=== PATIENT | female | born 1935 | race Caucasian/White ===

== ENCOUNTER 2021-03-12 06:18 | Inpatient (IN) ==
[2021-03-12] MEDS ORDERED: LACTATED RINGERS 1,000 ML IV ONE (06:45)
[2021-03-12] MEDS ORDERED: ONDANSETRON 4 MG/2 ML VIAL IV ONE (06:45)
[2021-03-12] MEDS ORDERED: 0.9 % SODIUM CHLORIDE 1,000 ML BAG IV SCH (07:00)
--- NOTE | 2021-03-12 07:04 | Emergency Department Note ---
Weakness HPI General Chief complaint: Weakness Stated complaint: weakness Time Seen by Provider: 03/12/21 06:40 Source: patient Mode of arrival: EMS Limitations: no limitations History of Present Illness HPI Narrative: Narrative: Patient is an 85-year-old female who presents by EMS this morning complaining of feeling weak when she got up. She has no speech difficulty no focused area of weakness and was ambulatory but describes sensation of feeling perhaps nauseated. She did not have any vomiting. No fever cough or shortness of breath. She does not feel any heart palpitations but when queried states perhaps a deeper heartbeat. No leg swelling. No recurrent rectal bleeding. Patient was seen 10 days ago with rectal bleed which was with noted extravasation on CT scan which resulted in her being transported to [place] where she underwent interventional procedure with coiling of a gastrointestinal vessel. Patient has follow-up tomorrow but noted with her symptoms today did not feel she should wait. She had previously been given hydrocodone but states that she has not taken any of that in the past day. Related Data Home Medications Medication Instructions Recorded Confirmed cholecalciferol (vitamin D3) 125 5,000 unit PO .COMPLEX cap 04/14/15 03/10/21 mcg (5,000 unit) capsule Previous Rx's Medication Instructions Recorded lisinopril 10 See Rx Instructions .ROUTE 06/14/20 mg-hydrochlorothiazide 12.5 mg .COMPLEX #30 tab tablet hydrocodone 5 mg-acetaminophen 325 1 tab PO BID PRN #20 tab 11/29/20 mg tablet levothyroxine 50 mcg tablet See Rx Instructions .ROUTE 03/07/21 .COMPLEX #90 tab Allergies Allergy/AdvReac Type Severity Reaction Status Date / Time monosodium glutamate Allergy Intermediate Unknown Verified 03/10/21 09:54 NSAIDS (Non-Steroidal Allergy Intermediate respiratory Verified 03/10/21 09:54 Anti-Inflamma problems, e.g. wheezing YULIYA Inhibitors Allergy Unknown Cough Verified 03/10/21 09:54 Verapamil Allergy Unknown Other Verified 03/10/21 09:54 Inderal Allergy Unknown Other Uncoded 03/10/21 09:54 Pollens (trees, grasses, Allergy Unknown Unknown Uncoded 03/10/21 09:54 ruiz) Sulfites/Food preservatives Allergy Unknown Unknown Uncoded 03/10/21 09:54 Yeast Allergy Unknown Uncoded 03/10/21 09:54 Review of Systems ROS ROS Narrative: Narrative: A 10 system review of systems was performed and found to be negative except as outlined above. [facility] Narrative Patient History Narrative: Narrative: Medical/Surgical/Family History All Active Problems (Updated 03/02/21 @ 05:09 by Franco Cook MD) Acute lower gastrointestinal bleeding (Acute) Diverticulosis (Acute) Acute urinary tract infection (Acute) Impacted ear wax (Acute) Decreased hearing of both ears (Acute) Fall (Chronic ~07/2015) Open head wound (Chronic ~07/2015) Right ankle injury (Chronic ~2014) S/p bilateral blepharoplasty (Chronic ~06/2014) Physical exam (Chronic) Arthritis (Chronic) Poor sleep (Chronic) Indigestion (Chronic) Well adult exam (Chronic) Encounter for screening for malignant neoplasm of vagina (Chronic) Encounter for screening for malignant neoplasm of colon (Chronic) Leg cramps (Chronic) Chronic renal disease, stage III (Chronic) Lumbar back pain with radiculopathy affecting left lower extremity (Chronic) Cervical radiculopathy (Chronic) Memory loss (Chronic) Muscle spasm (Chronic) Osteopenia (Chronic) Fatigue (Chronic) Insomnia (Chronic) Hemangioma of other sites (Chronic) Anxiety and depression (Chronic) Choking (Chronic) GERD (gastroesophageal reflux disease) (Chronic) Edema (Chronic) Dermatitis (Chronic) Hypertension (Chronic) Chronic renal disease (Chronic) UTI (urinary tract infection) (Chronic) Scoliosis (Chronic) Ankle pain, right (Chronic) Encounter for long-term (current) use of high-risk medication (Chronic) Knee pain, right (Chronic) Mood swings (Chronic) Hypothyroidism (Chronic) Skin mole (Chronic) Encounter for long-term current use of medication (Chronic) Urgency of urination (Chronic) Migraine headache (Chronic) Hyperlipemia (Chronic) Fluid retention (Chronic) History of tonsillectomy (Chronic) History of salpingoophorectomy (Chronic) History of hysterectomy (Chronic) History of augmentation of both breasts (Chronic) History of appendectomy (Chronic) History of adenoidectomy (Chronic) Vitamin D deficiency (Chronic) Venous insufficiency (Chronic) 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) Urinary incontinence, urge (Chronic) Urinary incontinence (Chronic) RLS (restless legs syndrome) (Chronic) Overweight (Chronic) Osteoarthrosis (Chronic) Low back pain (Chronic) IBS (irritable bowel syndrome) (Chronic) Hypertensive CKD (chronic kidney disease) (Chronic) Herpes zoster (Chronic) Hx of hemorrhoids (Chronic) affected by ectopic (Chronic) Degenerative joint disease (Chronic) History of colonic polyps (Chronic) Chronic kidney disease (CKD), 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) Back pain (Chronic) Anxiety disorder (Chronic) Allergic rhinitis (Chronic) Medical History (Updated 03/02/21 @ 05:09 by Franco Cook MD) Allergic rhinitis With postnasal drip Ankle pain, right Anxiety and depression Anxiety disorder Arthritis Back pain Chronic low back pain Borderline type 2 diabetes mellitus Cervical radiculopathy Choking Chronic kidney disease (CKD), stage II (mild) 07/17/2012 Chronic renal disease Chronic renal disease, stage III Degenerative joint disease Dermatitis Edema Encounter for long-term (current) use of high-risk medication Encounter for long-term current use of medication Encounter for screening for malignant neoplasm of colon Encounter for screening for malignant neoplasm of vagina Fall (~07/2015) fell for third time in four months 07/2015 Fatigue Fluid retention GERD (gastroesophageal reflux disease) Hemangioma of other sites Herpes zoster In LT T9 dermatome History of colonic polyps Hx of hemorrhoids Hyperlipemia Hypertension Hypertensive CKD (chronic kidney disease) Hypothyroidism IBS (irritable bowel syndrome) Indigestion Insomnia Knee pain, right Leg cramps Low back pain Lumbar back pain with radiculopathy affecting left lower extremity Memory loss Migraine headache Mood swings Muscle spasm [place] affected by ectopic Open head wound (~07/2015) requiring stitches on scalp from fall Osteoarthrosis Osteopenia Overweight Physical exam Poor sleep Right ankle injury (~2014) unstable ankle of concern RLS (restless legs syndrome) Scoliosis Skin mole Urgency of urination Urinary incontinence Urinary incontinence, urge UTI (urinary tract infection) Varicose veins of lower extremities with ulcer Venous insufficiency Vitamin D deficiency Well adult exam Surgical History History of adenoidectomy 1950 History of appendectomy 1957 History of augmentation of both breasts History of hysterectomy 1976 History of salpingoophorectomy 1976 History of tonsillectomy 1950 S/p bilateral blepharoplasty (~06/2014) eye lid drooping , interfering with vision Family History Sister Migraine with aura And daughters Mother Malignant neoplasm of colon Diabetes Arthritis HTN (hypertension) Father Cerebrovascular accident Heart disease Grandfather Lung cancer paternal Alcoholism Maternal Grandmother Diabetes Paternal Pancreatic cancer Maternal Social History Smoking Status: Never smoker Alcohol Intake Frequency: does not drink Substance Use: does not use Exam Narrative Narrative: Narrative: General: Alert, Nontoxic, speaking full sentences without dyspnea HEENT: NCAT, PERRL, Oral pharynx with moist mucus membranes. No pharyngeal erythema. No conjunctival pallor Neck: Supple, No lymphadenopathy Chest: Stable Heart: Overall regular rhythm with occasional ectopy. Monitor shows occasional PACs and PVCs. Lungs: Clear to auscultation bilaterally Abdomen: Soft, nondistended, nontender : No bladder distention Back: Nontraumatic, No CVA tenderness to palpation. Skin: No rash or lesion Extremity: No cyanosis or edema, pulses 2+ radial Neurologic: Moves all extremities in appropriate coordinated fashion. Cranial nerves III through XII symmetric intact. Strength is 5 out of 5 in all 4 extremities with sensation intact throughout. General Limitations: no limitations Course Vital Signs Vital signs: Vital Signs Temperature 98.2 F 03/12/21 06:21 Pulse Rate 82 03/12/21 06:21 Respiratory Rate 16 03/12/21 06:21 Blood Pressure 127/71 03/12/21 06:21 Pulse Oximetry (%) 95 03/12/21 06:21 Temperature 98.2 F 03/12/21 06:21 Pulse Rate 82 03/12/21 06:21 Respiratory Rate 16 03/12/21 06:21 Blood Pressure 127/71 03/12/21 06:21 Pulse Oximetry (%) 95 03/12/21 06:21 [facility] Narrative Medical decision making narrative: Narrative: Patient is with benign exam and nondescript weakness which overall seems to be a complaint of nausea. With the recent hydrocodone this is certainly a consideration but patient denies taking any of this in the past day. She is with noted occasional rhythm irregularity which seems to be PVCs and PACs. Will obtain ECG to further delineate rhythm. We will recheck hematocrit and electrolytes and give patient IV fluids and antiemetics and reassess. She does not have any focal neurologic deficit with no indication of cerebrovascular event. She does not describe any chest pain to imply any acute cardiovascular event. On exam patient was without pallor and blood pressures are normal. Care transferred to Dr. Bill at change of shift for reevaluation and review of labs. Discharge Plan Patient/Caregiver Discharge Instructions Pt seen by CALIBRATION TECHNICIAN/PA only: No Patient Disposition: Still a Patient Follow up with: Twan Farmer MD [Primary Care Provider] - Prescriptions: No Action lisinopril-hydrochlorothiazide 10-12.5 mg tablet See Rx Instructions .ROUTE .COMPLEX Qty: 30 RF: 5 levothyroxine 50 mcg tablet See Rx Instructions .ROUTE .COMPLEX Qty: 90 RF: 1 cholecalciferol (vitamin D3) 5,000 unit capsule 5,000 unit PO .COMPLEX RF: 0 hydrocodone-acetaminophen 5-325 mg tablet 1 tab PO BID PRN (Reason: pain) Qty: 20 RF: 0
[2021-03-12 07:11] LABS: POC Blood Urea Nitrogen 15 mg/dL (6-20); POC CO2 24 mmol/L (22-30); POC Calcium, Ionized 1.18 mmEq/L (1.16-1.32); POC Chloride 98 mEq/L (96-108); POC Creatinine 0.8 mg/dL (0.6-1.2); POC Glucose, Random 122 mg/dL (70-105); POC Hematocrit 32 % (36-48); POC Potassium 2.8 mEql/L (3.3-5.1); POC Sodium 139 mEq/L (133-145)
[2021-03-12] MEDS ORDERED: MAGNESIUM OXIDE 400 MG TABLET PO ONE (07:13)
[2021-03-12] MEDS ORDERED: POTASSIUM CHLORIDE 40 MEQ in DEXTROSE 5% IN WATER 500 ML IV ONE ×2 (07:13→07:56)
[2021-03-12] MEDS ORDERED: POTASSIUM CHLORIDE 20 MEQ/10 ML VIAL IV ONE (07:18)
--- NOTE | 2021-03-12 07:29 | Emergency Department Note ---
Course Reevaluation(s) Reevaluation #1: Patient's daughter arrived at bedside and noted the patient seems somewhat confused. She pointed out that she was having difficulty using her cell phone earlier today. I discussed this with the patient and she provides very vague seemingly confabulated history as to why she presented to the emergency department. I performed the following neurologic exam: Neuro -patient answers questions appropriately and is oriented to person place and situation. She is disoriented to the year but is able to correctly name the current president and the past 2 presidents. She provides somewhat vague answers to questions and seems slightly confused in conversation at times there is no dysarthria or aphasia. There is no facial muscular asymmetry. Extraocular motion is intact. Tongue protrudes in the midline. Palate elevates symmetrically. Shoulder shrug is symmetric. Muscle strength is 5 out of 5 in all 4 extremities. Peripheral sensation is grossly intact to light touch bilaterally. There is no [id number] abnormality. There is no [id number] abnormality. Patient's gait is intact. Given the patient's subtle confusion we will obtain additional blood work and imaging to evaluate for possible causes of metabolic encephalopathy. Symptoms do not seem consistent with ischemic stroke and as her NIH stroke scale is very low she would not benefit from IV thrombolytics or endovascular therapy I reviewed the test results with the patient and her daughter. She has normal renal function minimal anemia and no significant leukocytosis. Head CT does not reveal any intracranial hemorrhage. She does have significant pyuria. I considered the possibility of meningitis or encephalitis but the patient has no headache fever or leukocytosis to suggest this. Other than the addition of the new antihypertensive the patient does not have a recent medication adjustments that would explain her symptoms. I think most likely she is experiencing encephalopathy due to a UTI. The patient lives alone and daughter has noted continued confusion off and on throughout her emergency department stay. Given this I do not think would be safe to discharge the patient home. Her daughter agrees. The patient is reluctantly agreeable to admission for further treatment and evaluation. I discussed the patient's history examination and diagnostic findings with Dr. Hammer, who agrees with the plan of care and accepts admission. Time: 08:46 Vital Signs Vital signs: Vital Signs Temperature 98.2 F 03/12/21 06:21 Pulse Rate 82 03/12/21 06:21 Respiratory Rate 16 03/12/21 06:21 Blood Pressure 127/71 03/12/21 06:21 Pulse Oximetry (%) 95 03/12/21 06:21 Temperature 98.2 F 03/12/21 06:21 Pulse Rate 69 03/12/21 13:31 Respiratory Rate 14 03/12/21 13:31 Blood Pressure 155/82 03/12/21 13:31 Pulse Oximetry (%) 98 03/12/21 13:31 MDM MDM Narrative Medical decision making narrative: I assumed care from Dr. Guadarrama at the change of shift. I evaluated the patient in person at 7:20 AM. She is complaining of generalized weakness. She denies any diarrhea or vomiting. Labs remarkable for significant hypokalemia. I think is likely the cause of the patient's weakness. We will replete her potassium and administer supplemental magnesium to facilitate absorption. We will reassess her symptoms and potassium level afterwards and likely discharge. Patient is agreeable with plan Lab Data Result diagrams: 03/12/21 06:50 03/12/21 06:50 Labs: Lab Results 03/12/21 03/12/21 03/12/21 Range/Units 06:50 06:50 06:50 WBC 6.4 (4.5-11.0) K/mcL RBC 3.19 L (4.00-5.20) M/mcL Hgb 10.2 L (12.0-15.0) g/dL Hct 30.9 L (36.0-48.0) % POC Hct 32 L (36-48) % MCV 96.9 (80.0-100.0) fL MCH 32.0 (26.0-34.0) pg MCHC 33.0 (31.0-36.0) g/dL RDW 15.9 H (11.5-14.5) % Plt Count 344 (140-440) K/mcL MPV 10.4 (7.4-10.4) fL Neut % (Auto) 67.0 (38.0-78.0) % Lymph % (Auto) 22.2 (15.0-49.0) % [place] % (Auto) 9.6 (1.0-12.0) % Eos % (Auto) 0.6 (0.0-7.0) % Baso % (Auto) 0.6 (0.0-2.0) % Lymph # (Auto) 1.43 L (1.50-4.80) K/mcL [place] # (Auto) 0.62 (0.10-0.90) K/mcL Eos # (Auto) 0.04 (0.00-0.70) K/mcL Baso # (Auto) 0.04 (0.00-0.20) K/mcL Absolute Neutrophils 4.31 (1.80-8.00) K/mcL POC Sodium 139 (133-145) mEq/L Sodium 136 (133-145) mmol/L POC Potassium 2.8 L* (3.3-5.1) mEql/L Potassium 2.9 L* (3.3-5.1) mmol/L POC Chloride 98 (96-108) mEq/L Chloride 98 (96-108) mmol/L Carbon Dioxide 27 (22-30) mmol/L POC Total CO2 24 (22-30) mmol/L Anion Gap 11.0 (8.0-16.0) POC BUN 15 (6-20) mg/dL BUN 15 (8-23) mg/dL Creatinine 0.8 (0.6-1.1) mg/dL POC Creatinine 0.8 (0.6-1.2) mg/dL GFR Calculation 68 Glucose 117 H (70-105) mg/dL POC Glucose 122 H (70-105) mg/dL Calcium 9.2 (8.6-10.4) mg/dL POC WB Ioniz Calcium 1.18 (1.16-1.32) mmEq/L Total Bilirubin 0.4 (0.1-1.0) mg/dL AST 19 (<32) U/L ALT 7 (<40) U/L Alkaline Phosphatase 73 (39-117) U/L Total Protein 6.5 (5.9-8.4) gm/dL Albumin 4.1 (3.2-5.2) gm/dL Globulin 2.4 (2.2-3.7) gm/dL Albumin/Globulin Ratio 1.7 (1.0-2.3) Urine Color Urine Appearance (Clear) Urine pH (5.0-9.0) Ur Specific [place] (1.000-1.035) Urine Protein (Negative) mg/dL Urine Glucose (UA) (Negative) mg/dL Urine Ketones (Negative) mg/dL Urine Occult Blood (Negative) [place]/mcL Urine Nitrate (Negative) Urine Bilirubin (Negative) mg/dL Urine Urobilinogen mg/dL Ur Leukocyte Esterase (Negative) /ug Urine RBC (0-3) /hpf Urine WBC (0-4) /hpf Ur Squamous Epith Cells (0-4) /hpf Ur Transition Epith Cell (0-2) /hpf Urine Bacteria (0) /hpf Urine Mucus (None) /hpf Ur Culture Indicated? 03/12/21 Range/Units 07:50 WBC (4.5-11.0) K/mcL RBC (4.00-5.20) M/mcL Hgb (12.0-15.0) g/dL Hct (36.0-48.0) % POC Hct (36-48) % MCV (80.0-100.0) fL MCH (26.0-34.0) pg MCHC (31.0-36.0) g/dL RDW (11.5-14.5) % Plt Count (140-440) K/mcL MPV (7.4-10.4) fL Neut % (Auto) (38.0-78.0) % Lymph % (Auto) (15.0-49.0) % [place] % (Auto) (1.0-12.0) % Eos % (Auto) (0.0-7.0) % Baso % (Auto) (0.0-2.0) % Lymph # (Auto) (1.50-4.80) K/mcL [place] # (Auto) (0.10-0.90) K/mcL Eos # (Auto) (0.00-0.70) K/mcL Baso # (Auto) (0.00-0.20) K/mcL Absolute Neutrophils (1.80-8.00) K/mcL POC Sodium (133-145) mEq/L Sodium (133-145) mmol/L POC Potassium (3.3-5.1) mEql/L Potassium (3.3-5.1) mmol/L POC Chloride (96-108) mEq/L Chloride (96-108) mmol/L Carbon Dioxide (22-30) mmol/L POC Total CO2 (22-30) mmol/L Anion Gap (8.0-16.0) POC BUN (6-20) mg/dL BUN (8-23) mg/dL Creatinine (0.6-1.1) mg/dL POC Creatinine (0.6-1.2) mg/dL GFR Calculation Glucose (70-105) mg/dL POC Glucose (70-105) mg/dL Calcium (8.6-10.4) mg/dL POC WB Ioniz Calcium (1.16-1.32) mmEq/L Total Bilirubin (0.1-1.0) mg/dL AST (<32) U/L ALT (<40) U/L Alkaline Phosphatase (39-117) U/L Total Protein (5.9-8.4) gm/dL Albumin (3.2-5.2) gm/dL Globulin (2.2-3.7) gm/dL Albumin/Globulin Ratio (1.0-2.3) Urine Color Light yellow Urine Appearance Slightly cloudy A (Clear) Urine pH 7.0 (5.0-9.0) Ur Specific [place] 1.020 (1.000-1.035) Urine Protein Negative (Negative) mg/dL Urine Glucose (UA) Negative (Negative) mg/dL Urine Ketones Negative (Negative) mg/dL Urine Occult Blood Trace-intact A (Negative) [place]/mcL Urine Nitrate Negative (Negative) Urine Bilirubin Negative (Negative) mg/dL Urine Urobilinogen Normal mg/dL Ur Leukocyte Esterase Small A (Negative) /ug Urine RBC 3 (0-3) /hpf Urine WBC 84 H (0-4) /hpf Ur Squamous Epith Cells 3 (0-4) /hpf Ur Transition Epith Cell 3 H (0-2) /hpf Urine Bacteria Few A (0) /hpf Urine Mucus Few A (None) /hpf Ur Culture Indicated? yes EKG Data EKG #1: EKG attestation: Yes I reviewed and interpreted this EKG. EKG results narrative: EKG performed at 7:04 AM: Sinus rhythm, rate 72. There are few PACs. Normal P wave morphology. Left axis deviation. No ST segment deviation. Normal T wave morphology. Normal QRS and QTc duration. No old EKG immediately available for comparison. EKG interpreted by me. Discharge Plan Patient/Caregiver Discharge Instructions Pt seen by HEAD BUTLER/PA only: No Clinical Impression: Encephalopathy acute, Acute UTI Patient Disposition: Xfer As Inpt ([facility]) Condition: Fair Follow up with: Twan Farmer MD [Primary Care Provider] - Prescriptions: No Action lisinopril-hydrochlorothiazide 10-12.5 mg tablet See Rx Instructions .ROUTE .COMPLEX Qty: 30 RF: 5 levothyroxine 50 mcg tablet See Rx Instructions .ROUTE .COMPLEX Qty: 90 RF: 1 cholecalciferol (vitamin D3) 5,000 unit capsule 5,000 unit PO .COMPLEX RF: 0 hydrocodone-acetaminophen 5-325 mg tablet 1 tab PO BID PRN (Reason: pain) Qty: 20 RF: 0
[2021-03-12] MEDS: POTASSIUM CHLORIDE 20 MEQ TABLET PO ONE ×2 (07:40→07:45)
[2021-03-12] MEDS ORDERED: POTASSIUM CHLORIDE 20 MEQ TABLET PO ONE (07:44)
[2021-03-12] MEDS: POTASSIUM CHLORIDE 40 MEQ in DEXTROSE 5% IN WATER 500 ML IV ONE ×2 (07:45→07:59)
[2021-03-12 09:07] LABS: Basophils # (Auto) 0.04 K/mcL (0.00-0.20); Basophils % (Auto) 0.6 % (0.0-2.0); Eosinophils # (Auto) 0.04 K/mcL (0.00-0.70); Eosinophils % (Auto) 0.6 % (0.0-7.0); Hematocrit 30.9 % (36.0-48.0); Hemoglobin 10.2 g/dL (12.0-15.0); Lymphocytes # (Auto) 1.43 K/mcL (1.50-4.80); Lymphocytes % (Auto) 22.2 % (15.0-49.0); Mean Cell Volume 96.9 fL (80.0-100.0); Mean Platelet Volume 10.4 fL (7.4-10.4); Monocytes # (Auto) 0.62 K/mcL (0.10-0.90); Monocytes % (Auto) 9.6 % (1.0-12.0); Platelet Count 344 K/mcL (140-440); RBC 3.19 M/mcL (4.00-5.20); Red Cell Distribution Width 15.9 % (11.5-14.5); WBC 6.4 K/mcL (4.5-11.0)
[2021-03-12 09:13] LABS: ALT/SGPT 7 U/L (<40); AST/SGOT 19 U/L (<32); Albumin 4.1 gm/dL (3.2-5.2); Albumin/Globulin Ratio 1.7 (1.0-2.3); Alkaline Phosphatase 73 U/L (39-117); Bilirubin,Total 0.4 mg/dL (0.1-1.0); Blood Urea Nitrogen 15 mg/dL (8-23); Calcium 9.2 mg/dL (8.6-10.4); Carbon Dioxide 27 mmol/L (22-30); Chloride 98 mmol/L (96-108); Globulin 2.4 gm/dL (2.2-3.7); Glomerular Filtration Rate 68; Glucose 117 mg/dL (70-105)
--- NOTE | 2021-03-12 09:30 | XRay Report ---
HISTORY: Altered mental status with increased weakness FINDINGS: The lungs are clear and well expanded. The patient is leaning to the right. The heart size is within normal limits. There is no congestive heart failure pleural effusion. There are calcified plaques along the wall of the aorta. Spine has a kyphotic curvature. There is osteoporosis and mild arthritis. Bilateral breast implants are present. There are calcifications along the capsules of both implants. There has been prior fusion using pedicle screws and rods in the lumbar spine. IMPRESSION: No acute abnormality Interpreted and Authenticated by: Bao Castro 03/12/21
--- NOTE | 2021-03-12 09:41 | Cat Scan Report ---
History: Increased weakness with altered mental status TECHNIQUE: The brain was imaged without contrast in axial plane at 2.5 mm intervals. Sagittal and coronal reformats were created. The radiation exposure was limited using dose reduction technology. FINDINGS: There is mild generalized cerebral atrophy, most apparent around the sylvian fissures. There is moderate to severe diffuse white matter disease with confluent areas of abnormal decreased attenuation in the pearson radiata and centrum semiovale, predominantly involving the frontal and parietal lobes. There is a small old infarct in the right frontal lobe, anterior to the frontal horn of the right lateral ventricle, seen on axial image #23. It measures 8 mm. No acute infarct is detected. There is no hemorrhage or mass effect. Ventricles are prominent but proportionate to the atrophy. There is no abnormal extra-axial fluid collection. There are calcified plaques in the cavernous portions of both internal carotids and small amount of plaque in the left vertebral artery at the foramen magnum. There is opacification of a couple ethmoid air cells on the right side and mucosal thickening along the bajwa of a few left-sided ethmoid air cells due to mild sinusitis. 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 Mild ethmoid sinusitis Dr. Bill was called with the report Interpreted and Authenticated by: Bao Castro 03/12/21
[2021-03-12 10:46] LABS: Appearance,Urine Slightly Cloudy (Clear); Bacteria,Urine FEW /hpf (0); Bilirubin,Urine Negative (Negative); Color,Urine Light yellow; Culture Indicated,Urine yes; Glucose,Urine (UA) Negative (Negative); Ketones,Urine Negative (Negative); Leukocyte Esterase,Urine Small /ug (Negative); Mucus,Urine FEW /hpf; Nitrate,Urine Negative (Negative); Protein,Urine Negative (Negative); Urine Blood Trace-intact ery/mcL (Negative); Urine RBC 3 /hpf (0-3); Urine Squamous Epithelial Cell 3 /hpf (0-4); Urine Transitional Epi Cells 3 /hpf (0-2); Urine WBC 84 /hpf (0-4); Urobilinogen,Urine Normal
[2021-03-12] MEDS ORDERED: cefTRIAXone 1 GM VIAL IV ONE (11:18)
--- NOTE | 2021-03-12 15:31 | Internal Med History&Physical ---
HPI History of Present Illness Patient information: Note initiated : 03/12/21 at 3:20 pm Service Date, if different from initiated Date: [] Patient: Danuta Anderson 85 y/o F admitted on for weakness. Chief Complaint: [] History of present illness: Ms. 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 In the ED, the patient was found to have hypokalemia, acute cystitis and mild confusion. Review of systems Constitutional: no fever, fatigue, or weight loss Eyes: no vision changes or pain Cardiovascular: no chest pain, no palpitations Respiratory: no cough or dyspnea Gastrointestinal: no abdominal pain, no nausea, vomiting, or diarrhea Genitourinary: positive for dysuria Musculoskeletal: no arthralgia or myalgia Integumentary: no skin lesion or wound Neurological: positive for memory deficits. positive for visual hallucinations, no focal weakness or numbness Psychiatric: no anxiety or depression Physical exam Head: Atraumatic, normal inspection. Eyes: normal appearance, no scleral icterus. Neck: full ROM Respiratory: no respiratory distress. Cardiovascular: normal rate and rhythm, S1, S2. GI/Abdominal: soft, nontender, no guarding. Extremities: full range of motion, nontender. Neurological: CN II-XII intact, intact motor, intact sensation. Psychiatric: normal mood. Skin: warm, normal color PFSH PFSH All Active Problems (Updated 03/12/21 @ 14:09 by Vincenzo Bill DO) Encephalopathy acute (Acute) Acute UTI (Acute) Acute lower gastrointestinal bleeding (Acute) Diverticulosis (Acute) Acute urinary tract infection (Acute) Impacted ear wax (Acute) Decreased hearing of both ears (Acute) Fall (Chronic ~07/2015) Open head wound (Chronic ~07/2015) Right ankle injury (Chronic ~2014) S/p bilateral blepharoplasty (Chronic ~06/2014) Physical exam (Chronic) Arthritis (Chronic) Poor sleep (Chronic) Indigestion (Chronic) Well adult exam (Chronic) Encounter for screening for malignant neoplasm of vagina (Chronic) Encounter for screening for malignant neoplasm of colon (Chronic) Leg cramps (Chronic) Chronic renal disease, stage III (Chronic) Lumbar back pain with radiculopathy affecting left lower extremity (Chronic) Cervical radiculopathy (Chronic) Memory loss (Chronic) Muscle spasm (Chronic) Osteopenia (Chronic) Fatigue (Chronic) Insomnia (Chronic) Hemangioma of other sites (Chronic) Anxiety and depression (Chronic) Choking (Chronic) GERD (gastroesophageal reflux disease) (Chronic) Edema (Chronic) Dermatitis (Chronic) Hypertension (Chronic) Chronic renal disease (Chronic) UTI (urinary tract infection) (Chronic) Scoliosis (Chronic) Ankle pain, right (Chronic) Encounter for long-term (current) use of high-risk medication (Chronic) Knee pain, right (Chronic) Mood swings (Chronic) Hypothyroidism (Chronic) Skin mole (Chronic) Encounter for long-term current use of medication (Chronic) Urgency of urination (Chronic) Migraine headache (Chronic) Hyperlipemia (Chronic) Fluid retention (Chronic) History of tonsillectomy (Chronic) History of salpingoophorectomy (Chronic) History of hysterectomy (Chronic) History of augmentation of both breasts (Chronic) History of appendectomy (Chronic) History of adenoidectomy (Chronic) Vitamin D deficiency (Chronic) Venous insufficiency (Chronic) 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) Urinary incontinence, urge (Chronic) Urinary incontinence (Chronic) RLS (restless legs syndrome) (Chronic) Overweight (Chronic) Osteoarthrosis (Chronic) Low back pain (Chronic) IBS (irritable bowel syndrome) (Chronic) Hypertensive CKD (chronic kidney disease) (Chronic) Herpes zoster (Chronic) Hx of hemorrhoids (Chronic) affected by ectopic (Chronic) Degenerative joint disease (Chronic) History of colonic polyps (Chronic) Chronic kidney disease (CKD), 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) Back pain (Chronic) Anxiety disorder (Chronic) Allergic rhinitis (Chronic) Medical History (Updated 03/12/21 @ 14:09 by Vincenzo Bill DO) Allergic rhinitis With postnasal drip Ankle pain, right Anxiety and depression Anxiety disorder Arthritis Back pain Chronic low back pain Borderline type 2 diabetes mellitus Cervical radiculopathy Choking Chronic kidney disease (CKD), stage II (mild) 07/17/2012 Chronic renal disease Chronic renal disease, stage III Degenerative joint disease Dermatitis Edema Encounter for long-term (current) use of high-risk medication Encounter for long-term current use of medication Encounter for screening for malignant neoplasm of colon Encounter for screening for malignant neoplasm of vagina Fall (~07/2015) fell for third time in four months 07/2015 Fatigue Fluid retention GERD (gastroesophageal reflux disease) Hemangioma of other sites Herpes zoster In LT T9 dermatome History of colonic polyps Hx of hemorrhoids Hyperlipemia Hypertension Hypertensive CKD (chronic kidney disease) Hypothyroidism IBS (irritable bowel syndrome) Indigestion Insomnia Knee pain, right Leg cramps Low back pain Lumbar back pain with radiculopathy affecting left lower extremity Memory loss Migraine headache Mood swings Muscle spasm affected by ectopic Open head wound (~07/2015) requiring stitches on scalp from fall Osteoarthrosis Osteopenia Overweight Physical exam Poor sleep Right ankle injury (~2014) unstable ankle of concern RLS (restless legs syndrome) Scoliosis Skin mole Urgency of urination Urinary incontinence Urinary incontinence, urge UTI (urinary tract infection) Varicose veins of lower extremities with ulcer Venous insufficiency Vitamin D deficiency Well adult exam Surgical History History of adenoidectomy 1950 History of appendectomy 1957 History of augmentation of both breasts History of hysterectomy 1976 History of salpingoophorectomy 1976 History of tonsillectomy 1950 S/p bilateral blepharoplasty (~06/2014) eye lid drooping , interfering with vision Family History Sister Migraine with aura And daughters Mother Malignant neoplasm of colon Diabetes Arthritis HTN (hypertension) Father Cerebrovascular accident Heart disease Grandfather Lung cancer paternal Alcoholism Maternal Grandmother Diabetes Paternal Pancreatic cancer Maternal Social History marital status: occupational status: 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59) alcohol intake frequency: does not drink substance use type: does not use MEDS/ALLERGIES Home Medications and Allergies Home Medications Medication Instructions Recorded Confirmed Type cholecalciferol (vitamin D3) 125 5,000 unit PO .COMPLEX cap 04/14/15 03/12/21 History mcg (5,000 unit) capsule lisinopril 10 See Rx Instructions .ROUTE 06/14/20 03/12/21 Rx mg-hydrochlorothiazide 12.5 mg .COMPLEX #30 tab tablet hydrocodone 5 mg-acetaminophen 325 1 tab PO BID PRN #20 tab 11/29/20 03/12/21 Rx mg tablet levothyroxine 50 mcg tablet See Rx Instructions .ROUTE 03/07/21 03/12/21 Rx .COMPLEX #90 tab Allergies Allergy/AdvReac Type Severity Reaction Status Date / Time monosodium glutamate Allergy Intermediate Unknown Verified 03/10/21 09:54 NSAIDS (Non-Steroidal Allergy Intermediate respiratory Verified 03/10/21 09:54 Anti-Inflamma problems, e.g. wheezing YULIYA Inhibitors Allergy Unknown Cough Verified 03/10/21 09:54 Verapamil Allergy Unknown Other Verified 03/10/21 09:54 Inderal Allergy Unknown Other Uncoded 03/10/21 09:54 Pollens (trees, grasses, Allergy Unknown Unknown Uncoded 03/10/21 09:54 ruiz) Sulfites/Food preservatives Allergy Unknown Unknown Uncoded 03/10/21 09:54 Yeast Allergy Unknown Uncoded 03/10/21 09:54 EXAM Constitutional Vitals: Temp Pulse Resp BP Pulse Ox 98.2 F 81 21 157/76 97 03/12/21 06:21 03/12/21 15:01 03/12/21 15:01 03/12/21 15:01 03/12/21 15:01 DATA Data Completed and Pending Labs: Labs from last 24 hours 03/12/21 03/12/21 03/12/21 07:50 06:50 06:50 WBC 6.4 RBC 3.19 L Hgb 10.2 L Hct 30.9 L POC Hct MCV 96.9 MCH 32.0 MCHC 33.0 RDW 15.9 H Plt Count 344 MPV 10.4 Neut % (Auto) 67.0 Lymph % (Auto) 22.2 [place] % (Auto) 9.6 Eos % (Auto) 0.6 Baso % (Auto) 0.6 Lymph # (Auto) 1.43 L [place] # (Auto) 0.62 Eos # (Auto) 0.04 Baso # (Auto) 0.04 Absolute Neutrophils 4.31 POC Sodium Sodium 136 POC Potassium Potassium 2.9 L* POC Chloride Chloride 98 Carbon Dioxide 27 POC Total CO2 Anion Gap 11.0 POC BUN BUN 15 Creatinine 0.8 POC Creatinine GFR Calculation 68 Glucose 117 H POC Glucose Calcium 9.2 POC WB Ioniz Calcium Total Bilirubin 0.4 AST 19 ALT 7 Alkaline Phosphatase 73 Total Protein 6.5 Albumin 4.1 Globulin 2.4 Albumin/Globulin Ratio 1.7 Urine Color Light yellow Urine Appearance Slightly cloudy A Urine pH 7.0 Ur Specific [place] 1.020 Urine Protein Negative Urine Glucose (UA) Negative Urine Ketones Negative Urine Occult Blood Trace-intact A Urine Nitrate Negative Urine Bilirubin Negative Urine Urobilinogen Normal Ur Leukocyte Esterase Small A Urine RBC 3 Urine WBC 84 H Ur Squamous Epith Cells 3 Ur Transition Epith Cell 3 H Urine Bacteria Few A Urine Mucus Few A Ur Culture Indicated? yes 03/12/21 06:50 WBC RBC Hgb Hct POC Hct 32 L MCV MCH MCHC RDW Plt Count MPV Neut % (Auto) Lymph % (Auto) [place] % (Auto) Eos % (Auto) Baso % (Auto) Lymph # (Auto) [place] # (Auto) Eos # (Auto) Baso # (Auto) Absolute Neutrophils POC Sodium 139 Sodium POC Potassium 2.8 L* Potassium POC Chloride 98 Chloride Carbon Dioxide POC Total CO2 24 Anion Gap POC BUN 15 BUN Creatinine POC Creatinine 0.8 GFR Calculation Glucose POC Glucose 122 H Calcium POC WB Ioniz Calcium 1.18 Total Bilirubin AST ALT Alkaline Phosphatase Total Protein Albumin Globulin Albumin/Globulin Ratio Urine Color Urine Appearance Urine pH Ur Specific [place] Urine Protein Urine Glucose (UA) Urine Ketones Urine Occult Blood Urine Nitrate Urine Bilirubin Urine Urobilinogen Ur Leukocyte Esterase Urine RBC Urine WBC Ur Squamous Epith Cells Ur Transition Epith Cell Urine Bacteria Urine Mucus Ur Culture Indicated? 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 In the ED, the patient was found to have hypokalemia, acute cystitis and confusion. #Encephalopathy possibly infectious from UTI #Urinary tract infection #Visual hallucinations #Hypokalemia #Hypertension #Hypothyroidism #Chronic back pain Plan -Ceftriaxone IV for now, follow urine culture and adjust abx accordingly -Check TSH, Vit B12, Ammonia -Follow potassium-replace prn -Check magnesium -Continue home Lisinopril, hold HCTZ for hypokalemia. -Continue home Levothyroxine, hold home hydrocodone. -Start Norvasc. -Delirium precautions. -Consider MRI brain -PT and OT -Code status: DNR -Disposition: probably home with family support and neurology follow up for dementia evaluation. Update daughter, Yesi Francois, at [id number]. Time Spent With Patient Time: Total time spent is greater than 50% in coordination of care (as documented) at patient's floor/unit and/or counseling patient:
[2021-03-12] MEDS ORDERED: ONDANSETRON 4 MG/2 ML VIAL IV PRN (16:39)
[2021-03-12] MEDS ORDERED: LEVOTHYROXINE 50 MCG TABLET PO SCH (16:39)
[2021-03-12] MEDS ORDERED: VITAMIN D3 5,000 UNIT CAPSULE PO SCH (16:39)
[2021-03-12] MEDS: DOCUSATE SODIUM 100 MG CAPSULE PO SCH (20:56)
[2021-03-12] MEDS: LISINOPRIL 10 MG TABLET PO SCH (20:56)
[2021-03-12] MEDS: SENNOSIDES 1 TABLET PO SCH (20:57)
[2021-03-12] MEDS: 0.9 % SODIUM CHLORIDE 10 ML SYRINGE IV SCH (20:57)
[2021-03-12] MEDS: ACETAMINOPHEN 160 MG/5 ML ORAL.SOL PO PRN (20:57)
[2021-03-12 21:20] LABS: Blood Urea Nitrogen 11 mg/dL (8-23); Calcium 8.9 mg/dL (8.6-10.4); Carbon Dioxide 25 mmol/L (22-30); Chloride 100 mmol/L (96-108); Glomerular Filtration Rate 80; Glucose 103 mg/dL (70-105)
--- NOTE | 2021-03-13 01:50 | EKG ---
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 Measurements Intervals Ransom Rate: 72 P: 17 LA: 120 QRS: -39 QRSD: 98 T: 110 QT: 436 QTc: 478 Interpretive Statements SINUS RHYTHM MULTIPLE PREMATURE COMPLEXES,SUPRAVEN LEFT AXIS DEVIATION LVH WITH SECONDARY REPOLARIZATION ABNORMALITY NO PRIOR TRACING FOR COMPARISON ABNORMAL ECG Electronically Signed On 03-13-2021 1:49:24 PDT by Len River M.D. /store/[email or web address]/[id number]
[2021-03-13] MEDS: ACETAMINOPHEN 160 MG/5 ML ORAL.SOL PO PRN (01:58)
[2021-03-13] MEDS: 0.9 % SODIUM CHLORIDE 10 ML SYRINGE IV SCH ×3 (06:09→20:40)
[2021-03-13 07:38] LABS: Thyroid Stimulating Hormone 1.28 uIU/mL (0.27-5.01)
[2021-03-13] MEDS: LEVOTHYROXINE 50 MCG TABLET PO SCH (08:12)
[2021-03-13] MEDS: cefTRIAXone 1 GM VIAL IV SCH (08:13)
[2021-03-13] MEDS: DOCUSATE SODIUM 100 MG CAPSULE PO SCH ×2 (08:49→20:40)
[2021-03-13] MEDS ORDERED: amLODIPine 5 MG TABLET PO SCH (09:00)
[2021-03-13] MEDS ORDERED: VITAMIN D3 5,000 UNIT CAPSULE PO SCH (09:00)
--- NOTE | 2021-03-13 16:02 | Internal Med Progress Note ---
SUBJECTIVE Subjective Patient information: Note initiated : 03/13/21 at 3:57 pm Service Date, if different from initiated Date: [] Patient: Danuta Anderson 85 y/o F admitted on 03/12/21 for weakness. Chief Complaint: [] Interval history: Ms. Anderson is a 85 year old female with a history of a recent GI bleed treated with coiling of the mesenteric vessel at [facility], hypertension, hypothyroidism, chronic back pain, progressive co gnitive impairment associated with hallucinations who came to the ED via EMS for symptoms of lightheadedness. In the ED, the patient was found to have hypokalemia, acute cystitis and mild confusion associated with visual hallucinations. 03/13 No hallucinations overnight, hypokalemia resolved, lab work unremarkable. Urine growing gram negative bacillus. MRI brain today. Physical exam Head: Atraumatic, normal inspection. Eyes: normal appearance, no scleral icterus. Neck: full ROM Respiratory: no respiratory distress. Cardiovascular: normal rate and rhythm, S1, S2. GI/Abdominal: soft, nontender, no guarding. Extremities: full range of motion, nontender. Neurological: CN II-XII intact, intact motor, intact sensation. Psychiatric: memory deficits, denies hallucinations, normal mood. Skin: warm, normal color Constitutional Vitals: Vital Signs Temp Pulse Resp BP Pulse Ox 98.1 F 81 16 159/84 98 03/13/21 12:00 03/13/21 12:00 03/13/21 12:00 03/13/21 12:00 03/13/21 12:00 Period Temp Pulse Resp BP Sys/Milligan Pulse Ox Last 24 Hr 97.0 F-98.1 F 61-81 12-16 137-159/65-84 95-100 Intake and Output 03/13/21 03/13/21 03/13/21 05:59 13:59 21:59 Intake Total 250 360 Output Total 352 200 Balance -102 160 Weight 63.049 kg Patient Weight 03/14/21 05:59 Weight 63.049 kg Intake & Output: Intake & Output 03/13/21 03/13/21 03/13/21 05:59 13:59 21:59 Intake Total 250 360 Output Total 352 200 Balance -102 160 Weight 63.049 kg Intake: Oral 250 360 Output: Urine Catheter Amount 250 Void Amount 100 200 # of times incontinent of urine 1 Urine/Stool Mix 1 Other: Meal Breakfast Percent of Meal Consumed 75% Feeding Ability Independent Urine Appearance Clear Urine Color Pale Urine Odor Normal Stool Size Moderate Moderate Stool Color Brown Stool Consistency Liquid OBJ DATA Labs CBC & Chem 7: 03/12/21 06:50 03/12/21 19:15 Labs: Abnormal Lab Results 03/12/21 03/12/21 03/12/21 07:50 06:50 06:50 RBC 3.19 L Hgb 10.2 L Hct 30.9 L POC Hct RDW 15.9 H Lymph # (Auto) 1.43 L POC Potassium Potassium 2.9 L* Glucose 117 H POC Glucose Urine Appearance Slightly cloudy A Urine Occult Blood Trace-intact A Ur Leukocyte Esterase Small A Urine WBC 84 H Ur Transition Epith Cell 3 H Urine Bacteria Few A Urine Mucus Few A 03/12/21 06:50 RBC Hgb Hct POC Hct 32 L RDW Lymph # (Auto) POC Potassium 2.8 L* Potassium Glucose POC Glucose 122 H Urine Appearance Urine Occult Blood Ur Leukocyte Esterase Urine WBC Ur Transition Epith Cell Urine Bacteria Urine Mucus Meds: Medications Acetaminophen (Acetaminophen 160 Mg/5 Ml Oral.Umu) 650 mg PO Q6HP PRN; Protocol PRN Reason: Per Pain Protocol Last Admin: 03/13/21 01:58 Dose: 650 mg Documented by: Amlodipine Besylate (Amlodipine 5 Mg Tablet) 5 mg PO DAILY [facility] Last Admin: 03/13/21 08:12 Dose: 5 mg Documented by: Ceftriaxone Sodium (Ceftriaxone 1 Gm Vial) 1 gm IV DAILY [facility]; Protocol Last Admin: 03/13/21 08:13 Dose: 1 gm Documented by: Docusate Sodium (Docusate Sodium 100 Mg Capsule) 100 mg PO BID [facility] Last Admin: 03/13/21 08:49 Dose: Not Given Documented by: Levothyroxine Sodium (Levothyroxine 50 Mcg Tablet) 50 mcg PO ACB [facility] Last Admin: 03/13/21 08:12 Dose: 50 mcg Documented by: Lisinopril (Lisinopril 10 Mg Tablet) 10 mg PO HS [facility] Last Admin: 03/12/21 20:56 Dose: 10 mg Documented by: Ondansetron HCl (Ondansetron 4 Mg/2 Ml Vial) 4 mg IV Q6HP PRN PRN Reason: Nausea And Vomiting Senna (Sennosides 1 Tablet) 2 tab PO HS [facility] Last Admin: 03/12/21 20:57 Dose: 2 tab Documented by: Sodium Chloride (0.9 % Sodium Chloride 10 Ml Syringe) 10 ml IV Q8 [facility] Last Admin: 03/13/21 13:30 Dose: 10 ml Documented by: Vitamin D (Vitamin D3 5,000 Unit Capsule) 5,000 unit PO Q48H [facility] Last Admin: 03/13/21 08:12 Dose: 5,000 unit Documented by: A/P Narrative A/P Narrative: Assessment: 85 year old female with a history of a recent GI bleed treated with coiling of the mesenteric vessel at [facility], hypertension, hypothyroidism, chronic back pain, progressive cognitive impai rment associated with hallucinations who came to the ED via EMS for symptoms of lightheadedness. In the ED, the patient was found to have hypokalemia, acute cystitis and confusion. #Encephalopathy possibly infectious from UTI #Urinary tract infection #Visual hallucinations #Hypokalemia #Hypertension #Hypothyroidism #Chronic back pain Plan -Ceftriaxone IV, follow urine culture and adjust abx accordingly -MRI brain. -Continue home Lisinopril, hold HCTZ for hypokalemia. -Increase Norvasc to 10 mg daily. -Continue home Levothyroxine, hold home hydrocodone. -Delirium precautions. -PT and OT -Code status: DNR -Disposition: probably home with family support and neurology follow up for dementia evaluation. Update daughter, Yesi Francois, at [facility]. Time Spent With Patient Time: Total time spent is greater than 50% in coordination of care (as documented) at patient's floor/unit and/or counseling patient: QUALITY Stroke Symptom Onset Unknown: No VTE Deep Vein Thrombosis/Pulmonary Embolism Present on Admission: No
[2021-03-13] MEDS ORDERED: GADOBENATE DIMEGLUMINE 15 ML/VIAL IV ONE (19:02)
--- NOTE | 2021-03-13 19:42 | Magnetic Resonance Report ---
History: Altered mental status and increased weakness possible early dementia TECHNIQUE: Multiplanar imaging was performed using multiple pulse sequences. 12 mL MultiHance contrast was injected and postcontrast T1-weighted views were obtained.. FINDINGS: The T2 and FLAIR sequences reveal extensive white matter disease throughout the frontal and parietal lobes with milder involvement in the external capsules, left internal capsule, occipital and temporal lobes. There is also moderate involvement in the belly of the bj. These white matter lesions have no mass effect or restricted diffusion. They do not enhance with contrast. On the postcontrast axial T1-weighted views there is a linear band of enhancement in the cortex laterally in the right frontal lobe seen on image #18. This is also seen on the axial T2 FLAIR. It has no restricted diffusion and is not seen on any of the other pulse sequences. This is probably a cortical vein. It is unlikely a cortical infarct. No other cortical lesion is seen. Anterior to the frontal horn of the the right lateral ventricle, at the boundary between the splenium of the corpus callosum callosum and the frontal lobe there is a zone of encephalomalacia which measures 6 x 7 mm in size. There is no restricted diffusion or enhancement at this site. This is unchanged from the prior head CT done on 03/12/21. The corpus callosum is otherwise normal. Ventricles are mildly prominent but proportionate to the underlying generalized cerebral atrophy. No subdural or epidural fluid collection are present. 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
[2021-03-13] MEDS: LISINOPRIL 10 MG TABLET PO SCH (20:40)
[2021-03-13] MEDS: SENNOSIDES 1 TABLET PO SCH (20:40)
[2021-03-14] MEDS: 0.9 % SODIUM CHLORIDE 10 ML SYRINGE IV SCH ×2 (05:05→12:48)
[2021-03-14] MEDS: cefTRIAXone 1 GM VIAL IV SCH (08:28)
[2021-03-14] MEDS: LEVOTHYROXINE 50 MCG TABLET PO SCH (08:28)
[2021-03-14] MEDS: DOCUSATE SODIUM 100 MG CAPSULE PO SCH (08:28)
[2021-03-14] MEDS ORDERED: amLODIPine 10 MG TABLET PO SCH (09:00)
--- NOTE | 2021-03-14 16:17 | Discharge Summary ---
Discharge Provider Provider Patient information: Note initiated : 03/14/21 at 4:10 pm Service Date, if different from initiated Date: [] Patient: Danuta Anderson 85 y/o F admitted on 03/12/21 for weakness. Chief Complaint: [] Date of admission: 03/12/21 16:34 Discharge date: 03/14/21 Primary care physician: Twan Farmer MD Consults: 03/12/21 Consult to Physician [CONS] Stat Comment: Consulting Provider: Troy Hammer Reason For Exam: Physician to Consult Discharge Meds Discharge Medications Home Medications cholecalciferol (vitamin D3) 125 mcg (5,000 unit) capsule 5,000 unit PO .COMPLEX cap 04/14/15 [History Confirmed 03/12/21 Last Taken 03/11/21] lisinopril 10 mg-hydrochlorothiazide 12.5 mg tablet See Rx Instructions .ROUTE .COMPLEX #30 tab 06/14/20 [Rx Confirmed 03/12/21 Last Taken 03/12/21] levothyroxine 50 mcg tablet See Rx Instructions .ROUTE .COMPLEX #90 tab 03/07/21 [Rx Confirmed 03/12/21 Last Taken 03/11/21] nitrofurantoin monohyd/m-cryst 100 mg PO BID 4 Days #8 cap 03/14/21 [Rx Last Taken Unknown] COURSE Hospital Course Hospital course: Ms. 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 In the ED, the patient was found to have hypokalemia, acute cystitis and mild confusion associated with visual hallucinations. 03/13 No hallucinations overnight, hypokalemia resolved, lab work unremarkable. Urine growing gram negative bacillus. MRI brain today. 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 Urine culture grew Klebsiella sensitive to Nitrofurantoin. Discharged to home with daughters, complete 5 days of antibiotics with nitrofurantoin. I recommended a neurology appointment to evaluation for cognitive impairment, suspect the patient has dementia. Discharge diagnosis: Encephalopathy Secondary discharge diagnosis: Acute cystitis Cognitive impairment Hypertension Time Spent with Patient Time attestation: Total time spent providing and/or coordinating discharge services: EXAM Constitutional Vitals: Temp Pulse Resp BP Pulse Ox 98.0 F 75 16 141/73 97 03/14/21 12:00 03/14/21 12:00 03/14/21 12:00 03/14/21 12:00 03/14/21 12:00 Additional findings Additional findings: Physical exam Head: Atraumatic, normal inspection. Eyes: normal appearance, no scleral icterus. Neck: full ROM Respiratory: no respiratory distress. Cardiovascular: normal rate and rhythm, S1, S2. GI/Abdominal: soft, nontender, no guarding. Extremities: full range of motion, nontender. Neurological: CN II-XII intact, intact motor, intact sensation. Psychiatric: memory deficits, denies hallucinations, normal mood. Skin: warm, normal color Discharge Plan Patient/Caregiver Discharge Instructions Activity: increase activity as tolerated Diet: Regular Diet Instructions: Encephalopathy (DC) Activity Restrictions/Additional Instructions: Resume home diet as tolerated. Take all meals up in chair sitting at 90 degrees. Increase activity as tolerated. Continue fall precautions. Follow-up with Twan Farmer as needed. Take all medication as directed. Your prescription is with your discharge paperwork. Pain medication can cause constipation; take an over the counter stool softener and/or laxative while on pain medication. Some medications were electronically transmitted to pharmacy Take your prescription, insurance cards, and photo ID to corn picker your medication. Return to ER for fever, chills, uncontrolled pain, inability to urinate or have a bowel movement, nausea and/or vomiting, swelling, redness, signs of infection, shortness of breath, chest pain, return of symptoms, or other acute symptom This discharge packet is provided to you to help keep you informed about your care. We want to ensure you get everything you need when you go home. You will also be receiving a call from us in a few days to follow up with you and see how you are doing since your discharge. This gives us a chance to listen to any concerns you maybe experiencing since you were discharged or any additional needs you may have, as well as providing us feedback on your care experience. We strive to always provide excellent care and thank you for your feedback and for choosing [facility]. Prescriptions: New nitrofurantoin monohyd/m-cryst 100 mg Capsule 100 mg PO BID 4 Days Qty: 8 RF: 0 Continued lisinopril-hydrochlorothiazide 10-12.5 mg tablet See Rx Instructions .ROUTE .COMPLEX Qty: 30 RF: 5 levothyroxine 50 mcg tablet See Rx Instructions .ROUTE .COMPLEX Qty: 90 RF: 1 cholecalciferol (vitamin D3) 5,000 unit capsule 5,000 unit PO .COMPLEX RF: 0 Discontinued hydrocodone-acetaminophen 5-325 mg tablet 1 tab PO BID PRN (Reason: pain) Qty: 20 RF: 0 Follow Up Plan Follow up with: Twan Farmer MD [Primary Care Provider] - (Contact the office to schedule) Patient Disposition: Home, Self-Care Prognosis: Fair Discharge Orders: Discharge Order (Routine); Ordered 03/14/21 Ordered By: Troy FERMIN VTE Deep Vein Thrombosis/Pulmonary Embolism Present on Admission: No
[2021-03-14] MEDS ORDERED: NITROFURANTOIN SR 100 MG CAPSULE PO SCH (21:00)
== END 2021-03-14 17:40 | disposition home or self-care (01) | DRG 71 ==
LOC: ED 06:18 → MEDSUR 16:34
PROVIDERS: ADMIT Internal Medicine; ATTEND Internal Medicine